=== PATIENT | female | born 1985 | race American Indian/Alaskan Native ===

== ENCOUNTER 2016-11-22 11:53 | Emergency (ER) | payer OTHER ==
[2016-11-22] MEDS ORDERED: TYLENOL/CODEINE PO ONE (17:06)
[2016-11-22] MEDS ORDERED: MOTRIN PO ONE (17:07)
--- NOTE | 2016-11-22 17:11 | Emergency Department Report ---
HPI - General Chief Complaint: Pain General Time Seen by Provider: 11/22/16 17:04 - HPI HPI: Patient is a 31-year-old female who presents to ED complaining on dry nonproductive cough and throat pain 3 days. Patient states symptoms started 3 days ago. Patient states she has mild pain with swallowing but otherwise is able to tolerate food. Patient states she takes no other medication. Patient states she has no allergies to medication. Patient remains generalized body aches Patient denies fevers/chills/nausea/vomiting/abdominal pain/chest pain or shortness of breath/dizziness or any other symptoms. ED Past Medical Hx - Past Medical History Hx Hypertension: Yes - Surgical History Past Surgical History?: No - Medications Home Medications: Home Medications Medication Instructions Recorded Confirmed Last Taken Type Acetamin/Codeine 120-12Mg/5 ml 5 ml PO TID #60 oral.liqd 11/22/16 Unknown Rx [Tylenol/Codeine 120-12 mg/5 ml] Ibuprofen [Motrin 800 MG tab] 800 mg PO TID #30 tablet 11/22/16 Unknown Rx ED Review of Systems ROS: Stated complaint: FLU LIKE SYMPTOMS Other details as noted in HPI Constitutional: denies: chills, fever Eyes: denies: eye pain, eye discharge, vision change ENT: throat pain. denies: ear pain Respiratory: denies: cough, shortness of breath, wheezing Cardiovascular: denies: chest pain, palpitations Endocrine: no symptoms reported Gastrointestinal: denies: abdominal pain, nausea, diarrhea Genitourinary: denies: urgency, dysuria, discharge Musculoskeletal: denies: back pain, joint swelling, arthralgia Skin: denies: rash, lesions Neurological: denies: headache, weakness, paresthesias Psychiatric: denies: anxiety, depression Hematological/Lymphatic: denies: easy bleeding, easy bruising Physical Exam - Physical Exam Vital Signs: Vital Signs 11/22/16 12:56 Temperature 97.7 F Pulse Rate 95 H Respiratory 18 Rate Blood Pressure 157/112 O2 Sat by Pulse 100 Oximetry Physical Exam: GENERAL: Alert and oriented x3, no apparent distress, Normal Gait, atraumatic. HEAD: Head is normocephalic and a-traumatic. EYES: Extra ocular muscles are intact. Pupils are equal, round, and reactive to light and accommodation. EARS: symetrical, atraumatic, non tender, ear canal clear and moderate cerumen, tympanic membrance non inflamed. gross auditory nml bilaterally. NOSE: Nose symetrical, Nontender,Nares appeared normal. MOUTH:Mouth is well hydrated and without lesions. Tonsils nonerythematous or swollen, Uvula midline, Tongue not elevated. Mucous membranes are moist. Posterior pharynx clear, no exudate or lesions. Patent airways. NECK: Supple. Non edematous, No carotid bruits. No lymphadenopathy or thyromegaly. LUNGS: Symetrical with respiration, No wheezing, no rales or crackles, CTAB. HEART: S1, S2 present, regular rate and rhythm without murmur, no rubs, no gallops. ABDOMEN: No organomegaly was noted,Positive bowel sounds, soft, and non- distended. . Nontender to palpation on all Quadrants, NO CVA tenderness. NEUROLOGIC: No focal Deficit, Cranial nerves II through XII are grossly intact. No loss of sensation, SKIN: Warm and dry, No lesions, No ulceration or induration present. ED Course Vital Signs 11/22/16 12:56 Temperature 97.7 F Pulse Rate 95 H Respiratory 18 Rate Blood Pressure 157/112 O2 Sat by Pulse 100 Oximetry ED Medical Decision Making - Medical Decision Making 31-year-old female presents with bronchitis. ED course: Patient received Tylenol with codeine and Motrin. Patient reports better. Patient has no respiratory distress. Vital signs stable. Mildly elevated blood pressure. Blood pressur pressure reduced prior to discharge. Discussed patient to follow up with her primary care physician. Discussed patient take medication as prescribed. Discussed to increase fluids. Discussed the patient for elective symptoms may persist for about 2 weeks. Critical care attestation.: If time is entered above; I have spent that time in minutes in the direct care of this critically ill patient, excluding procedure time. ED Disposition Clinical Impression: Bronchitis, Flu-like symptoms Disposition: DISCHARGED TO HOME OR SELFCARE Is pt being admited?: No Does the pt Need Aspirin: No Condition: Stable Instructions: Chronic Bronchitis (ED), Upper Respiratory Infection (ED) Prescriptions: Acetamin/Codeine 120-12Mg/5 ml [Tylenol/Codeine 120-12 mg/5 ml] 5 ml PO TID #60 oral.liqd Ibuprofen [Motrin 800 MG tab] 800 mg PO TID #30 tablet Referrals: PRIMARY CARE, [Primary Care Provider] - 3-5 Days Forms: Work/School Release Form(ED) Time of Disposition: 17:31
[2016-11-22 17:39] VITALS: BP 147/96
== END 2016-11-22 17:42 | disposition home or self-care (01) ==
LOC: ED 11:53
DX: J40 Bronchitis, not specified as acute or chronic (principal); J11.1 Influenza due to unidentified influenza virus with other respiratory manifestations; I10 Essential (primary) hypertension
CPT/HCPCS: 99282